=== PATIENT | female | born 1940 | race Two or more races ===

== ENCOUNTER 2017-08-03 17:42 | Emergency (ER) | payer OTHER, BC ==
[~2017-08-03] VITALS: Ht 157.5 cm; Wt 81.3 kg
[2017-08-03] MEDS ORDERED: LISINOPRIL20 MG PO ×2 (17:54)
[2017-08-03] MEDS ORDERED: ATENOLOL100 MG PO (17:55)
[2017-08-03] MEDS ORDERED: SYNTHROID100 MCG PO (17:55)
[2017-08-03] MEDS ORDERED: GLYBURIDE5 MG PO (17:56)
[2017-08-03 19:35] LABS: HEMATOCRIT 40.4 % (36.0-46.0); HEMOGLOBIN 13.1 G/DL (11.9-15.5); MCH 27.7 PG (29.0-34.0); MCHC 32.4 G/DL (30.0-36.0); MCV 85.4 FL (83-99); PLATELET COUNT 235 K/uL (156-360); RBC DIS.WIDTH-SD 43.7 % (39-53); RED BLOOD COUNT 4.73 M/uL (3.80-5.20); WHITE BLOOD COUNT 10.6 K/uL (4.1-10.2)
[2017-08-03 19:46] LABS: CHLORIDE 102 mEq/L (99-109); POTASSIUM 4.5 mEq/L (3.7-5.4); SODIUM 137 mEq/L (136-147)
[2017-08-03 19:47] LABS: GLUCOSE 189 mg/dL (70-99)
[2017-08-03 19:51] LABS: CREATININE 0.9 mg/dL (0.6-1.3); GFR ESTIMATE (CALCULATED) > 59 mL/min/
[2017-08-03 19:52] LABS: UREA NITROGEN (BUN) 20 mg/dL (9-23)
[2017-08-03 20:00] LABS: TROP-I INTERPRETATION NEGATIVE; TROPONIN-I < 0.01 ng/mL (0.0-0.30)
[2017-08-03 20:36] LABS: APPEARANCE CLEAR ((CLEAR)); BILIRUBIN NEGATIVE; BLOOD NEGATIVE; COLOR STRAW ((YELLOW)); GLUCOSE (STRIP) NEGATIVE; KETONES NEGATIVE; LEUKOCYTES NEGATIVE; NITRITE NEGATIVE; PROTEIN (STRIP) NEGATIVE; SPECIFIC GRAVITY 1.011 (1.000-1.030); UCUL ADDED? NO; UROBILINOGEN 0.2 MG/DL (0.2-1.0)
[2017-08-04 01:27] VITALS: BP 115/67
== END 2017-08-04 01:32 | disposition home or self-care (01) ==
LOC: EME 17:42
PROVIDERS: Emergency Medicine
DX: I10 Essential (primary) hypertension (principal); Z88.6 Allergy status to analgesic agent
CPT/HCPCS: 70450; 80048; 81003; 84484; 85027; 93005; 99281; 99285

== ENCOUNTER 2017-08-05 19:36 | Emergency (ER) | payer OTHER, BC ==
[~2017-08-05] VITALS: Ht 157.5 cm; Wt 81.4 kg
[~2017-08-05 19:36] MED LIST: ATENOLOL100 MG PO; GLYBURIDE5 MG PO; LISINOPRIL20 MG PO; SYNTHROID100 MCG PO
[2017-08-05 21:56] LABS: HEMATOCRIT 36.3 % (36.0-46.0); HEMOGLOBIN 11.9 G/DL (11.9-15.5); MCH 27.7 PG (29.0-34.0); MCHC 32.8 G/DL (30.0-36.0); MCV 84.4 FL (83-99); PLATELET COUNT 239 K/uL (156-360); RBC DIS.WIDTH-CV 14.4 % (11.8-14.6); WHITE BLOOD COUNT 11.7 K/uL (4.1-10.2)
[2017-08-05 22:05] LABS: CHLORIDE 101 mEq/L (99-109); SODIUM 136 mEq/L (136-147)
[2017-08-05 22:06] LABS: GLUCOSE 211 mg/dL (70-99)
[2017-08-05 22:10] LABS: CREATININE 1.1 mg/dL (0.6-1.3); GFR ESTIMATE (CALCULATED) 51 mL/min/
[2017-08-05 22:11] LABS: UREA NITROGEN (BUN) 20 mg/dL (9-23)
[2017-08-05 22:17] LABS: TROP-I INTERPRETATION NEGATIVE; TROPONIN-I < 0.01 ng/mL (0.0-0.30)
[2017-08-06 00:09] VITALS: BP 151/78
== END 2017-08-06 00:10 | disposition home or self-care (01) ==
LOC: EME → EDBD 19:36 → EME 08-06 00:10
PROVIDERS: Emergency Medicine
DX: I10 Essential (primary) hypertension (principal); F03.90 Unspecified dementia, unspecified severity, without behavioral disturbance, psychotic disturbance, mood disturbance, and anxiety; Z88.6 Allergy status to analgesic agent
CPT/HCPCS: 80048; 84484; 85027; 99281; 99285

== ENCOUNTER 2017-08-09 13:31 | Emergency (ER) | payer OTHER, BC ==
[~2017-08-09] VITALS: Ht 157.5 cm; Wt 69.9 kg
[2017-08-09 14:30] LABS: BASOPHIL (%) 0.3 % (0-1); EOSINOPHIL (%) 0.7 % (0-5); EOSINOPHIL COUNT 0.1 K/uL (0-0.3); HEMATOCRIT 36.4 % (36.0-46.0); HEMOGLOBIN 11.8 G/DL (11.9-15.5); IMMATURE GRANULOCYTE (%) 0.3 % (0.0-0.7); LYMPHOCYTE (%) 23.8 % (15-42); LYMPHOCYTE COUNT 2.3 K/uL (1.0-2.8); MCH 27.5 PG (29.0-34.0); MCHC 32.4 G/DL (30.0-36.0); MCV 84.8 FL (83-99); MONOCYTE (%) 5.5 % (3-12); MONOCYTE COUNT 0.5 K/uL (0-0.8); NEUTROPHIL (%) 69.4 % (45-76); NEUTROPHIL COUNT 6.6 K/uL (1.8-6.4); PLATELET COUNT 231 K/uL (156-360); RBC DIS.WIDTH-CV 14.2 % (11.8-14.6); RBC DIS.WIDTH-SD 43.7 % (39-53); RED BLOOD COUNT 4.29 M/uL (3.80-5.20); WHITE BLOOD COUNT 9.5 K/uL (4.1-10.2)
[2017-08-09 15:02] LABS: CHLORIDE 100 MEQ/L (99-109); POTASSIUM 4.5 MEQ/L (3.7-5.4); SODIUM 132 MEQ/L (136-147)
[2017-08-09 15:08] LABS: GFR ESTIMATE (CALCULATED) 57 mL/min/; GLUCOSE 244 mg/dL (70-99); UREA NITROGEN (BUN) 21 mg/dL (9-23)
[2017-08-09 15:11] LABS: TROP-I INTERPRETATION NEGATIVE; TROPONIN-I < 0.01 ng/mL (0.0-0.30)
[2017-08-09] MEDS ORDERED: NORVASC10 MG PO (15:11)
[2017-08-09 16:49] VITALS: BP 105/66
== END 2017-08-09 16:51 | disposition home or self-care (01) ==
LOC: EME 13:31
PROVIDERS: Emergency Medicine
DX: I10 Essential (primary) hypertension (principal); Z88.6 Allergy status to analgesic agent
CPT/HCPCS: 80048; 84484; 85025; 93005; 99281; 99284

== ENCOUNTER 2017-08-27 00:40 | Emergency (ER) | payer OTHER, BC ==
[~2017-08-27] VITALS: Ht 157.5 cm; Wt 77.9 kg
[~2017-08-27 00:40] MED LIST changes: +NORVASC10 MG PO
[2017-08-27 02:43] VITALS: BP 134/74
== END 2017-08-27 02:44 | disposition home or self-care (01) ==
LOC: EME 00:40
DX: I10 Essential (primary) hypertension (principal); E11.9 Type 2 diabetes mellitus without complications; Z79.84 Long term (current) use of oral hypoglycemic drugs
CPT/HCPCS: 99281; 99284

== ENCOUNTER 2017-09-05 10:11 | Emergency (ER) | payer OTHER, BC ==
[~2017-09-05] VITALS: Ht 157.5 cm; Wt 77.9 kg
[2017-09-05 11:25] LABS: HEMATOCRIT 34.4 % (36.0-46.0); HEMOGLOBIN 11.4 G/DL (11.9-15.5); MCH 27.8 PG (29.0-34.0); MCHC 33.1 G/DL (30.0-36.0); MCV 83.9 FL (83-99); PLATELET COUNT 242 K/uL (156-360); RBC DIS.WIDTH-CV 13.9 % (11.8-14.6); RBC DIS.WIDTH-SD 42.5 % (39-53); WHITE BLOOD COUNT 8.9 K/uL (4.1-10.2)
[2017-09-05 11:32] LABS: ALBUMIN 3.4 g/dL (3.2-4.8)
[2017-09-05 11:33] LABS: CHLORIDE 104 mEq/L (99-109); SODIUM 144 mEq/L (136-147)
[2017-09-05 11:44] LABS: SOURCE SWAB
[2017-09-05 11:47] LABS: GLUCOSE 264 mg/dL (70-99); TOTAL PROTEIN 6.1 g/dL (6.4-8.3)
[2017-09-05 11:49] LABS: TOTAL BILIRUBIN 0.4 mg/dL (0.0-1.0)
[2017-09-05 11:50] LABS: ALKALINE PHOSPHATASE 40 IU/L (3-129)
[2017-09-05 11:51] LABS: CREATININE 0.6 mg/dL (0.6-1.3); GFR ESTIMATE (CALCULATED) > 59 mL/min/
[2017-09-05 11:52] LABS: AST (GOT) 7 IU/L (2-34); UREA NITROGEN (BUN) 12 mg/dL (9-23)
[2017-09-05 11:53] LABS: ALT (GPT) 7 IU/L (3-49)
[2017-09-05 12:57] LABS: APPEARANCE CLEAR ((CLEAR)); BILIRUBIN NEGATIVE; BLOOD NEGATIVE; COLOR STRAW ((YELLOW)); GLUCOSE (STRIP) >=500; KETONES NEGATIVE; LEUKOCYTES NEGATIVE; NITRITE NEGATIVE; PROTEIN (STRIP) NEGATIVE; SPECIFIC GRAVITY 1.009 (1.000-1.030); UCUL ADDED? NO; UROBILINOGEN 0.2 MG/DL (0.2-1.0)
[2017-09-05 13:23] LABS: CHLORIDE 99 MEQ/L (99-109); GFR ESTIMATE (CALCULATED) 57 mL/min/; GLUCOSE 229 mg/dL (70-99); POTASSIUM 4.9 MEQ/L (3.7-5.4)
[2017-09-05 13:31] LABS: SODIUM 130 MEQ/L (136-147); UREA NITROGEN (BUN) 21 mg/dL (9-23)
[2017-09-05 14:03] VITALS: BP 143/81
== END 2017-09-05 14:57 | disposition home or self-care (01) ==
LOC: EME 10:11
PROVIDERS: Emergency Medicine
DX: R30.0 Dysuria (principal); F03.90 Unspecified dementia, unspecified severity, without behavioral disturbance, psychotic disturbance, mood disturbance, and anxiety; I10 Essential (primary) hypertension; Z87.440 Personal history of urinary (tract) infections; Z88.6 Allergy status to analgesic agent
CPT/HCPCS: 80048 91; 80053; 81003; 85027; 87210; 87491; 87591; 99281; 99285

== ENCOUNTER 2017-09-10 19:49 | Emergency (ER) | payer OTHER, BC ==
[~2017-09-10] VITALS: Ht 154.9 cm; Wt 78.7 kg
[2017-09-10] MEDS ORDERED: ACETAMINOPHEN-1 EAC1 PO (21:40)
[2017-09-10 23:48] VITALS: BP 128/75
== END 2017-09-10 23:48 | disposition home or self-care (01) ==
LOC: EME 19:49
DX: R10.2 Pelvic and perineal pain (principal); I10 Essential (primary) hypertension; F03.90 Unspecified dementia, unspecified severity, without behavioral disturbance, psychotic disturbance, mood disturbance, and anxiety; T46.5X6A Underdosing of other antihypertensive drugs, initial encounter; Z91.14 Patient's other noncompliance with medication regimen; Z88.6 Allergy status to analgesic agent
CPT/HCPCS: 99281; 99285